=== PATIENT | female | born 1965 | race Caucasian/White ===

== ENCOUNTER 2019-02-23 18:25 | Emergency (ER) | payer MEDICAID, OTHER ==
[~2019-02-23] VITALS: Ht 160 cm; Wt 60.7 kg
[2019-02-23 18:27] VITALS: Ht 160 cm; Wt 60.7 kg
--- NOTE | 2019-02-23 18:42 | ERD ---
ER Documentation Chief Complaint Chief Complaint Pt c/o RUQ pain x 2 days denies n/v, pt reports pain worse after lifting HPI This is a 54-year-old female no significant past medical history who presents to the emergency room with right upper quadrant abdominal wall pain. She states that she has noticed a string of nodules to the anterior abdomen near the anterior axillary line in the right upper quadrant. She denies any fevers or chills, weight changes or other lymph nodes. Patient denies any postprandial symptoms. She states that when she lifted a heavy box she noticed there was pain in this area. Pain is noted to be approximately 3 out of 10. No fevers chills nausea vomiting chest pain or shortness of breath. No breast skin changes or lesions. ROS All systems reviewed and are negative except as per history of present illness. Medications Home Meds Active Scripts Ibuprofen* (Motrin*) 800 Mg Tab, 800 MG PO Q6H PRN for PAIN AND OR ELEVATED TEMP, #30 TAB Prov:RABIA HERNANDEZ MD 02/23/19 Allergies Allergies: Coded Allergies: No Known Allergy (Verified Allergy, Unknown, 12/24/06) FmHx Family History: No diabetes Physical Exam Vitals Vital Signs Date Temp Pulse Resp B/P (MAP) Pulse Ox O2 O2 Flow FiO2 Time Delivery Rate 02/23/19 97.9 86 16 149/74 100 Room Air 19:02 (99) 02/23/19 99.6 90 16 156/72 100 18:27 (100) Physical Exam General: Well developed, well nourished, no acute distress Head: Normocephalic, atraumatic. Eyes: Pupils equally reactive, EOM intact ENT: Moist mucous membranes Neck: Supple, no lymphadenopathy Respiratory: Lungs clear bilaterally, no distress Cardiovascular: RRR, no murmurs, rubs, or gallops Abdominal: Soft, non-tender, non-distended, no peritoneal signs, negative Christensen sign, no rebound or guarding, no tenderness to McBurney's point. There is a small personally 2 to 3 cm linear area in the anterior axillary line near the right upper quadrant overlying ribs 6 and 7 that appear to be nodules in a vertical distribution. Nontender. Mobile. : Deferred MSK: No edema, no unilateral swelling, 5/5 strength Neurologic: Alert and oriented, moving all extremities, normal speech, no focal weakness, no cerebellar signs Skin: No rash Psych: Normal mood Result Diagram: 02/23/19184902/23/191849 Results 24 hrs Laboratory Tests Test 02/23/19 18:50 White Blood Count 10.1 10^3/ul Red Blood Count 4.52 10^6/ul Hemoglobin 13.3 g/dl Hematocrit 40.4 % Mean Corpuscular Volume 89.4 fl Mean Corpuscular Hemoglobin 29.4 pg Mean Corpuscular Hemoglobin Concent 32.9 g/dl Red Cell Distribution Width 12.2 % Platelet Count 204 10^3/UL Mean Platelet Volume 9.6 fl Immature Granulocytes % 0.300 % Neutrophils % 70.4 % Lymphocytes % 19.6 % Monocytes % 8.3 % Eosinophils % 1.1 % Basophils % 0.3 % Nucleated Red Blood Cells % 0.0 /100WBC Immature Granulocytes # 0.030 10^3/ul Neutrophils # 7.1 10^3/ul Lymphocytes # 2.0 10^3/ul Monocytes # 0.8 10^3/ul Eosinophils # 0.1 10^3/ul Basophils # 0.0 10^3/ul Nucleated Red Blood Cells # 0.0 10^3/ul Sodium Level 140 mmol/L Potassium Level 4.1 mmol/L Chloride Level 104 mmol/L Carbon Dioxide Level 30 mmol/L Anion Gap 6 Blood Urea Nitrogen 13 mg/dl Creatinine 0.54 mg/dl Est Glomerular Filtrat Rate mL/min > 60 mL/min Glucose Level 111 mg/dl Calcium Level 9.3 mg/dl Total Bilirubin 0.4 mg/dl Direct Bilirubin 0.00 mg/dl Indirect Bilirubin 0.4 mg/dl Aspartate Amino Transf (AST/SGOT) 28 IU/L Alanine Aminotransferase (ALT/SGPT) 19 IU/L Alkaline Phosphatase 100 IU/L Total Protein 8.3 g/dl Albumin 4.5 g/dl Globulin 3.80 g/dl Albumin/Globulin Ratio 1.18 Lipase 84 U/L Procedures/MDM LAB INTERPRETATION: I reviewed the laboratory testing and it shows no evidence of acute process MEDICAL DECISION MAKING: Patient with reproducible right-sided musculoskeletal abdominal wall pain. There is associated nodularity to the skin in a vertical distribution that could be personal financial representative of underlying lipoma versus lymph node chain. No obvious evidence of infection or drainage. The patient is not describing any other lymphadenopathy and none obvious on clinical exam. No breast changes to suggest malignant process. The patient does not have postprandial symptoms and has no tenderness to the right upper quadrant that would represent hepatobiliary process. However, basic blood work and abdominal labs will be reasonable to rule out obstructive process. Patient was advised of NSAIDs and serial exams. If she continues to have symptoms she was advised to follow-up with a specialist for possible needle biopsy. ER COURSE: * Patient continues to be well-appearing in the emergency room setting. NSAIDs and outpatient follow-up with serial exams will be most appropriate. CONSULTATION: None DISPOSITION PLAN: The patient does not have an identifiable emergent medical condition that warrants inpatient hospitalization at this time. The patient is deemed safe for discharge with outpatient follow-up. We discussed follow up with the patient's primary care doctor within 24 to 48 hours as needed. We also discussed return to the emergency room for worsening symptoms or worsening condition. Outpatient referral: None required Discharge Medications: Motrin Departure Diagnosis: Primary Impression: Subcutaneous nodule of abdominal wall Condition: Stable RABIA HERNANDEZ MD February 23, 2019 18:42
[2019-02-23] MEDS ORDERED: IBUP800T48 PO (19:50)
[2019-02-23 19:56] VITALS: BP 139/63; PULSE 80; RESP 16
== END 2019-02-23 19:59 | disposition home or self-care (01) ==
LOC: E/R 18:25
DX: R22.2 Localized swelling, mass and lump, trunk (principal)
CPT/HCPCS: 36415; 80053; 83690; 85025; 99283